=== PATIENT | male | born 1995 | race African-American/Black ===

== ENCOUNTER 2017-11-17 23:02 | Emergency (ER) | payer OTHER ==
[~2017-11-17] VITALS: Ht 170.2 cm; Wt 75.0 kg
[2017-11-17 23:36] VITALS: BP 146/83; PULSE 74; RESP 18; TEMP 99; O2SAT 100
--- NOTE | 2017-11-17 23:50 | PD ---
HPI Chief Complaint: Back/ Neck Pain or Injury Time Seen by Provider: 23:40 Travel History International Travel<30 days: No Contact w/Intl Traveler<30days: No Traveled to known affect area: No History of Present Illness HPI 22yo M with no PMH presents to the ED with c/o headache and neck pain s/p fall in elevator at around 8pm today. Said he was in an elevator and it was going down and there was a sudden stop that cause everyone to fall. Said he did hit his head but no LOC. Had nausea but that resolved. Headache is frontal, bilateral. Denies any fever, chest pain, sob, vomiting, abdominal pain, focal weakness or numbness. Said they then realize elevator door was not opening and as they were trying to fix it, it went up and down and he became nauseous. Said he feels better once out of the elevator. PFSH Past Medical History Medical History: Denies Significant Hx Tetanus Vaccination: Never Vaccinated Influenza Vaccination: Yes Past Surgical History Surgical History: No Previous Surgery Social History Alcohol Use: No Tobacco Use: No Substance Use: No Allergies-Medications (Allergen,Severity, Reaction): Coded Allergies: No Known Allergies (Unverified , 11/17/17) Reported Meds & Prescriptions Reported Meds & Active Scripts Active No Active Prescriptions or Reported Medications Review of Systems Except as stated in HPI: all other systems reviewed are Neg Physical Exam Narrative GENERAL: 22yo M in mild distress. SKIN: Focused skin assessment warm/dry. HEAD: Atraumatic. Normocephalic. EYES: Pupils equal and round at 3mm bilaterally. EOMI. ENT: No nasal bleeding or discharge. Mucous membranes pink and moist. NECK: Cervical spine collar on. CARDIOVASCULAR: Regular rate and rhythm. No murmur appreciated. RESPIRATORY: No accessory muscle use. Clear to auscultation. Breath sounds equal bilaterally. GASTROINTESTINAL: Abdomen soft, non-tender, nondistended. MUSCULOSKELETAL: No obvious deformities. No clubbing. No cyanosis. No edema. NEUROLOGICAL: Awake and alert. No obvious cranial nerve deficits. Motor grossly within normal limits in all extremities. Sensation equal in all extremities. Normal speech. PSYCHIATRIC: Appropriate mood and affect; insight and judgment normal. Data Data Last Documented VS Vital Signs Date Time Temp Pulse Resp B/P (MAP) Pulse Ox O2 Delivery O2 Flow Rate FiO2 2/22/18 23:36 99.0 74 18 146/83 (104) 100 Orders Orders Acetaminophen (Tylenol) (11/18/17 01:00) Ed Discharge Order (11/18/17 01:45) MDM Medical Decision Making Medical Screen Exam Complete: Yes Emergency Medical Condition: Yes Differential Diagnosis Contusion vs. ICH vs. fracture Narrative Course 22yo M with headache s/p head injury after falling from standing when elevator stopped. No focal neurologic exam. CT brain/cspine pending. Sign out to next team to follow up on imaging. Diagnosis Primary Impression: Head injury Qualified Codes: S09.90XA - Unspecified injury of head, initial encounter Scripts No Active Prescriptions or Reported Meds Margie Gotti DO Nov 17, 2017 23:50
[2017-11-18] MEDS ORDERED: ACETAMINOPHEN 325 MG TAB PO ONE (01:00)
--- NOTE | 2017-11-18 01:49 | PD ---
Physical Exam Date Seen by Provider: Nov 18, 2017 Time Seen by Provider: 01:45 Narrative GENERAL: Well-developed, well-nourished in no apparent distress. Nontoxic appearing. HEAD: Normocephalic, atraumatic. EYES: Pupils equal round and reactive. Extraocular motions intact. No scleral icterus. No injection or drainage. ENT: Nose clear. Throat without erythema, tonsillar hypertrophy or exudate. Uvula midline. Airway patent. NECK: Trachea midline. Supple, nontender, moves head freely. No central bony tenderness or spasm. CARDIOVASCULAR: Regular rate and rhythm without murmurs, gallops, or rubs. RESPIRATORY: Clear to auscultation. Breath sounds equal bilaterally. No wheezes , rales, or rhonchi. GASTROINTESTINAL: Abdomen soft, non-tender, nondistended. No hepato-splenomegaly , or palpable masses. No guarding. EXTREMITIES: No clubbing, cyanosis, or edema. No joint tenderness. BACK: Nontender without deformity. No flank tenderness. Able to heel and toe stand. Able to perform 3 jumping jacks. For his jumping jacks he has taken off his when he calls $700 [employer] NEUROLOGICAL: Awake, alert and oriented x 3 .Cranial nerves grossly intact. Motor and sensory grossly within normal limits. Normal speech. Data Data Last Documented VS Vital Signs Date Time Temp Pulse Resp B/P (MAP) Pulse Ox O2 Delivery O2 Flow Rate FiO2 11/17/17 23:36 99.0 74 18 146/83 (104) [address] Brain W/O Iv Contrast(Rout) (11/17/17 ) Ct Cerv Spine W/O Contrast (11/17/17 ) Acetaminophen (Tylenol) (11/18/17 01:00) Ed Discharge Order (11/18/17 01:45) MDM Medical Record Reviewed: Yes Supervised Visit with MADONNA: Yes Differential Diagnosis MDM: High Differential diagnoses: Fracture, sprain, strain, dislocation, contusion, neurovascular injury Narrative Course The patient has refused to have his CAT scan of his head and neck. He now states that his pain is completely resolved and he does not feel he needs them. He states that he would like to be discharged home so he can get some rest. Patient denies any complaints of pain. He denies any numbness, tingling or weakness. Patient is removed from his c-collar. His exam is performed and is normal. His CAT scans have been canceled and he is medically stable for discharge. Diagnosis Primary Impression: Elevator malfunction with no serious injury Patient Instructions: General Instructions Additional Instruction: Rest. Ice for the next 3 days followed by heat . Tylenol or Advil. Follow-up with a primary care doctor in one week. Return to the ER for emergencies. Med/Other Pt SpecificInfo: No Meds Exist/No RX given Scripts No Active Prescriptions or Reported Meds Disposition: 01 DISCHARGE HOME Condition: Andrzej Baca Nov 18, 2017 01:49
== END 2017-11-18 01:59 | disposition home or self-care (01) ==
LOC: NEPD 23:02
DX: S09.90XA Unspecified injury of head, initial encounter (principal); W19.XXXA Unspecified fall, initial encounter
CPT/HCPCS: 99283